=== PATIENT | male | born 1970 | race Caucasian/White ===

== ENCOUNTER 2017-08-31 16:57 | Emergency (ER) | payer OTHER ==
[2017-08-31 17:06] VITALS: BP 141/95; PULSE 74; RESP 18; TEMP 98.6; O2SAT 98
[2017-08-31] MEDS ORDERED: TDAP ADULT 0.5 ML INJ (BOOSTRIX) IM ONE (17:18)
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
[2017-08-31] MEDS ORDERED: LET GEL TOPICAL 1 EA SYR TP ONE (17:26)
== END 2017-08-31 18:06 | disposition home or self-care (01) ==
DX: S42.032A Displaced fracture of lateral end of left clavicle, initial encounter for closed fracture (principal); Z23 Encounter for immunization; V18.0XXA Pedal cycle driver injured in noncollision transport accident in nontraffic accident, initial encounter; Y99.8 Other external cause status; Y93.55 Activity, bike riding
CPT/HCPCS: A4565

== ENCOUNTER → 2017-09-25 | Outpatient (CLI) | payer OTHER | LOC: BMCIMAGING 09:26 | PROVIDERS: ATTEND Family Medicine | DX: R29.898 Other symptoms and signs involving the musculoskeletal system (principal) ==